=== PATIENT | female | born 1960 | race Caucasian/White ===

== ENCOUNTER 2024-06-25 16:44 | Emergency (ER) | payer MEDICARE, MEDICAID ==
[~2024-06-25] VITALS: Ht 149.9 cm; Wt 70.0 kg
[2024-06-25 17:01] VITALS: O2SAT 97
[2024-06-25 18:30] VITALS: BP 144/87; PULSE 62; RESP 18; TEMP 37.05852; O2SAT 97
[2024-06-25] MEDS: IBUPROFEN 600MG TABLET PO ONE (18:33)
== END 2024-06-25 18:30 | disposition home or self-care (01) ==
LOC: ER 16:44
DX: S60.041A Contusion of right ring finger without damage to nail, initial encounter (principal); X58.XXXA Exposure to other specified factors, initial encounter; Y93.89 Activity, other specified; Y92.89 Other specified places as the place of occurrence of the external cause; Y99.8 Other external cause status
CPT/HCPCS: 73130; 99283